=== PATIENT | male | born 1950 | race Caucasian/White ===

== ENCOUNTER 2017-06-11 16:28 | Emergency (ER) | payer MEDICARE, BC | END 2017-06-11 18:00 | disposition home or self-care (01) | LOC: D.ER 16:28 | DX: M79.671 Pain in right foot (principal); E11.9 Type 2 diabetes mellitus without complications; I25.10 Atherosclerotic heart disease of native coronary artery without angina pectoris ==

== ENCOUNTER → 2018-05-25 07:21 | Outpatient (CLI) | payer MEDICARE, BC | END | disposition home or self-care (01) | LOC: D.RAD 07:21 | DX: R13.10 Dysphagia, unspecified (principal); K21.9 Gastro-esophageal reflux disease without esophagitis ==

== ENCOUNTER → 2018-12-29 08:07 | Outpatient (CLI) | payer MEDICARE, BC | END | disposition home or self-care (01) | LOC: D.US 08:07 | PROVIDERS: ATTEND General Practice | DX: R10.10 Upper abdominal pain, unspecified (principal) ==

== ENCOUNTER 2019-09-12 06:37 | Day surgery (SDC) | payer MEDICARE, BC ==
[~2019-09-12] VITALS: Ht 177.8 cm; Wt 118.8 kg
[~2019-09-12 06:37] MED LIST: CLARITIN 10 MG10 MG PO; COREG25 MG PO; CYCLOBENZAPRINE10 MG PO; FENOFIBRATE160 MG PO; FLUTICASONE PRO16 GM NASAL; ISOSORBIDE MONO30 M1 PO; LANTUS INS100 UNITS/ SC; LISINOPRIL20 MG PO; NEURONTIN800 MG PO; NITROQUICK0.4 MG SL; NORVASC10 MG PO; PLAVIX75 MG PO; PROTONIX40 MG PO; ZETIA10 MG PO
[2019-09-12 07:02] LABS: ANION GAP 10.9 mmol/L (8-16); CALCIUM 8.9 mg/dL (8.5-10.1); CARBON DIOXIDE 28.2 mmol/L (21.0-32.0); CREATININE - SERUM 1.2 mg/dL (0.6-1.3); POTASSIUM - SERUM 4.1 mmol/L (3.5-5.1)
[2019-09-12 07:03] LABS: HEMATOCRIT 41.7 % (42.0-54.0); HEMOGLOBIN 13.8 g/dL (13.5-17.5); MCH 26.2 pg (26.0-34.0); MCHC 33.1 g/dL (31.0-37.0); MCV 79.3 fL (80.0-100.0); MEAN PLATELET VOLUME 10.8 fL (7.4-10.4); RBC 5.26 10x6/uL (4.20-6.10); RDW 14.1 % (11.5-14.5); WBC 6.1 10x3/uL (4.8-10.8)
[2019-09-12 08:03] VITALS: BP 133/67; Ht 177.8 cm; Wt 118.8 kg
[2019-09-12] MEDS ORDERED: HYDROCODON-ACE1 EAC7 PO (10:32)
--- NOTE | 2019-09-12 11:13 | NUR ---
1050 PATIENT AROUSABLE, OPA DISCONTINUED
== END 2019-09-12 12:30 | disposition home or self-care (01) ==
LOC: D.OPS 06:37 → D.PAN 09:30 → D.OPS 12:30
PROVIDERS: Anesthesiology; ATTEND Surgery
DX: K80.20 Calculus of gallbladder without cholecystitis without obstruction (principal); E11.9 Type 2 diabetes mellitus without complications; I25.10 Atherosclerotic heart disease of native coronary artery without angina pectoris; I10 Essential (primary) hypertension